=== PATIENT | female | born 1995 | race American Indian/Alaskan Native ===

== ENCOUNTER 2021-08-19 04:35 | Outpatient (CLI) | payer MEDICAID ==
[2021-08-19 07:48] VITALS: BP 91/54
== END 2021-08-19 08:33 | disposition home or self-care (01) ==
LOC: TRG 04:35 → APU 04:43 → TRG 08:33
PROVIDERS: ATTEND Obstetrics & Gynecology
DX: Z34.93 Encounter for supervision of normal pregnancy, unspecified, third trimester (principal); Z3A.39 39 weeks gestation of pregnancy
CPT/HCPCS: 59025

== ENCOUNTER 2021-08-19 12:09 | Inpatient (IN) | payer MEDICAID ==
[2021-08-19] MEDS ORDERED: LACTATED RINGERS 500 ML IV ONE (14:30)
[2021-08-19 14:31] LABS: Bilirubin,Urine NEG (Negative); Blood,Urine SM (Negative); Color,Urine Straw (Yellow); Protein,Urine <15 mg/dL mg/dL (Negative); Urobilinogen,Urine < 2.0 mg/dL (<2.0); WBC,Urine < 1.0 /HPF (0.0-6.0)
--- NOTE | 2021-08-19 14:31 | History and Physical Report ---
History of Present Illness Date of examination: 08/19/21 Date of admission: 08/19/2021 Chief complaint: contractions History of present illness: EDC Confirmation: 08/23/2021 Past History : 1 Term Births: 0 Premature Births: 0 Living Children: 0 Para: 0 Mult. Births: 0 Prev : 0 Aborta: 0 Elect. Ab: 0 Spont. Ab: 0 Ectopics: 0 Past Medical History: Reviewed history and no changes required: Negative Past Medical History Past Surgical History: Reviewed history and no changes required: negative Past Medical History Anesthesia Complications: negative Anemia: negative Autoimmune Disorder: negative Bleeding Disorder: negative Blood Transfusions: negative Breast Disease: negative Diabetes: negative Heart Disease: negative Hypertension: negative Hepatitis/Liver Disease: negative Kidney Disease/UTI: negative Neurologic/Epilepsy/Migraines: negative Phlebitis/Varicosities: negative Psychiatric: negative Pulmonary Disease/Asthma: negative Thyroid Disease: negative Hospitalizations: negative 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 of genital herpes: no Partner hx. of genital herpes: no Rash, Viral, or Febrile illness since last LMP? no Varicella/Chicken Pox Status: Unknown TB Risk: no Genetic History Congenital Heart Defect: Mom: no Dad: no Bella Disease: Mom: no Dad: no Thalassemia Mom: no Dad: no Neural Tube Defect Mom: no Dad: no Down's Syndrome Mom: no Dad: no Aguila-Sachs Mom: no Dad: no Sickle Cell Disease/Trait Mom: no Dad: no Hemophilia Mom: no Dad: no Muscular Dystrophy Mom: no Dad: no Cystic Fibrosis Mom: no Dad: no Raffaele Chorea Mom: no Dad: no Mental Retardation Mom: no Dad: no Fragile X Mom: no Dad: no Other Genetic/Chromosomal Disorder Mom: no Dad: no Child w/other defect Mom: no Dad: no Enviromental Exposures Xray Exposure: no Medication, drug, or alcohol use since LMP: no Chemical/Other Exposure: no Exposure to Cat Liter: no Hx of Parvovirus (Fifth Disease): no 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 Medications: None Current Allergies (reviewed today): No known allergies Past History Past Medical History: no pertinent history Past Surgical History: no surgical 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) Family/Genetic History: other (see HPI) Social history: other (see HPI) - Obstetrical History Expected Date of Delivery: 08/23/21 Actual Gestation: 39 Week(s) 3 Day(s) : 1 Para: 0 Hx # Term Pregnancies: 0 Number of Pregnancies: 0 Spontaneous Abortions: 0 Induced : 0 Number of Living Children: 0 Medications and Allergies Allergies Allergy/AdvReac Type Severity Reaction Status Date / Time No Known Allergies Allergy Unverified 08/19/21 05:05 Active Meds: Active Medications Lactated Ringer's (Lactated Ringers) 500 mls @ 999 mls/hr IV BOLUS ONE Stop: 08/19/21 15:00 Review of Systems All systems: negative Genitourinary: contractions, no vaginal bleeding, no leakage of fluid - Vital Signs Vital signs: Vital Signs Temp Resp 98.3 F 18 08/19/21 12:25 08/19/21 12:25 Temp Pulse Resp BP Pulse Ox 98.3 F 86 18 92/51 98 08/19/21 12:25 08/19/21 14:24 08/19/21 12:25 08/19/21 12:35 08/19/21 14:24 - Physical Exam Breasts: Positive: deferred Cardiovascular: Regular rate Lungs: Positive: Normal air movement Abdomen: Positive: normal appearance, soft. Negative: tenderness Genitourinary (Female): Positive: normal external genitalia, normal perenium Vulva: both: normal Vagina: Positive: normal moisture Uterus: Positive: normal size, normal contour, other (gravid). Negative: tender Anus/Rectum: Positive: normal perianal skin, heme negative Extremities: Positive: normal - Obstetrical FHR: category 2 FHR comments: FHR with minimal and moderate variability with accelerations Uterine Contraction Monitor Mode: Palpation Cervical Dilatation: 3 Cervical Effacement Percentage: 90 station: -2 Uterine Contraction Pattern: Regular Uterine Tone Measurement Phase: Resting Results All other labs normal. Tests: (1) Ct, Ng, Trich vag by ALFIE ([id number]) Order Note: Clinical Information: SRC:UR SRC:VR Chlamydia by ALFIE Negative Negative *1 Gonococcus by ALFIE Negative Negative *2 Trich vag by ALFIE Negative Negative *3 Tests: (2) Strep Gp B ALFIE+Rflx ([id number]) ! Strep Gp B ALFIE+Rflx [A] Positive Negative *4 Tests: (1) Profile I ([id number]) Order Note: Clinical Information: SRC:UR HBsAg Screen Negative Negative *1 RPR Non Reactive Non Reactive *2 Rubella Antibodies, IgG 3.46 index Immune >0.99 *3 Non-immune <0.90 Equivocal 0.90 - 0.99 Immune >0.99 ABO Grouping A *4 Rh Factor Positive *5 Please note: Prior records for this patient's ABO / Rh type are not available for additional verification. Antibody Screen Negative Negative *6 WBC 6.0 x10E3/uL 3.4-10.8 *7 RBC 4.43 x10E6/uL 3.77-5.28 *8 Hemoglobin 12.3 g/dL 11.1-15.9 *9 Hematocrit 38.4 % 34.0-46.6 *10 MCV 87 fL 79-97 *11 MCH 27.8 pg 26.6-33.0 *12 MCHC 32.0 g/dL 31.5-35.7 *13 RDW 12.8 % 11.7-15.4 *14 Platelets 322 x10E3/uL 150-450 *15 Neutrophils 64 % Not Estab. *16 Lymphs 29 % Not Estab. *17 Monocytes 6 % Not Estab. *18 Eos 1 % Not Estab. *19 Basos 0 % Not Estab. *20 ! Immature Cells <No Reported Value> *21 Neutrophils (Absolute) 3.8 x10E3/uL 1.4-7.0 *22 Lymphs (Absolute) 1.8 x10E3/uL 0.7-3.1 *23 Monocytes(Absolute) 0.4 x10E3/uL 0.1-0.9 *24 Eos (Absolute) 0.0 x10E3/uL 0.0-0.4 *25 Baso (Absolute) 0.0 x10E3/uL 0.0-0.2 *26 ! Immature Granulocytes 0 % Not Estab. *27 ! Immature Grans (Abs) 0.0 x10E3/uL 0.0-0.1 *28 ! NRBC <No Reported Value> *29 Hematology Comments: <No Reported Value> *30 Tests: (2) Parvovirus B19, Human, IgG/IgM ([id number]) ! Parvovirus B19, IgG 0.1 index 0.0-0.8 *31 Negative <0.9 Equivocal 0.9 - 1.1 Positive >1.1 ! Parvovirus B19, IgM 0.1 index 0.0-0.8 *32 Negative <0.9 Equivocal 0.9 - 1.1 Positive >1.1 Tests: (3) HB Solu + Rflx Fra ([id number]) Hemoglobin (Hgb) Solubility Negative Negative *33 Tests: (4) HIV Ag/Ab with Reflex ([id number]) HIV Screen 4th Generation wRfx Non Reactive Non Reactive *34 Tests: (5) Gest. Diabetes 1-Hr Screen ([id number]) ! Gestational Diabetes Screen 101 mg/dL 65-139 *35 According to ADA, a glucose threshold of >139 mg/dL after 50-gram load identifies approximately 80% of women with gestational diabetes mellitus, while the sensitivity is further increased to approximately 90% by a threshold of >129 mg/dL. Tests: (6) HCV Ab w/Rflx to Verification ([id number]) ! HCV Ab <0.1 s/co ratio 0.0-0.9 *36 Tests: (7) Comment: ([id number]) ! Comment: SPRCS *37 Non reactive HCV antibody screen is consistent with no HCV infection, unless recent infection is suspected or other evidence exists to indicate HCV infection. Tests: (8) Urine Culture, Routine ([id number]) Urine Culture, Routine Final report *38 Tests: (9) Result ([id number]) ! Result 1 "Result Below..." *39 RESULT: Lactobacillus species 50,000-100,000 colony forming units per mL Susceptibility not normally performed on this organism. Assessment and Plan POC d/w pt and SO. All questions and concerns addressed. Pt verbalizes understanding and agrees to POC. Orders placed in EMR - Patient Problems (1) 39 weeks gestation of Current Visit: Yes Status: Acute Plan to address problem: continuous efm and toco monitor closely and notify provider with any changes in status admit to labor, start IV, draw labs anticipate (2) Active labor at term Current Visit: Yes Status: Acute (3) Supervision of normal first in third trimester Current Visit: Yes Status: Acute (4) GBS carrier Current Visit: Yes Status: Acute Plan to address problem: Ampicillin q4h with active labor or ROM VS per protocol
[2021-08-19] MEDS ORDERED: ONDANSETRON 4 MG/2 ML INJ IV PRN (14:39)
[2021-08-19] MEDS ORDERED: NALOXONE 0.4 MG/1 ML INJ IV PRN (14:39)
[2021-08-19] MEDS ORDERED: CARBOPROST TROMETHAMINE 250 MCG/1 ML INJ IM PRN (14:39)
[2021-08-19] MEDS ORDERED: TERBUTALINE 1 MG/1 ML INJ SUB-Q PRN (14:39)
[2021-08-19] MEDS ORDERED: METHYLERGONOVINE MALEATE 0.2 MG/ML VIAL IM PRN (14:39)
[2021-08-19] MEDS ORDERED: miSOPROStol 200 MCG TAB PR PRN (14:39)
[2021-08-19] MEDS ORDERED: NalbUPHINE 10 MG/1 ML INJ IV PRN (14:39)
[2021-08-19] MEDS ORDERED: MINERAL OIL 30 ML ORAL LIQD PO PRN (14:39)
[2021-08-19] MEDS ORDERED: ePHEDrine SULFATE 50 MG/1 ML INJ IV PRN (14:39)
[2021-08-19] MEDS ORDERED: OXYTOCIN 10 UNIT/1 ML INJ IM PRN (14:39)
[2021-08-19] MEDS ORDERED: LIDOCAINE (2%) 20 MG/1 ML VIAL 20 ML MDV INFILTRATI ONE (14:39)
[2021-08-19] MEDS ORDERED: LOPERAMIDE 2 MG CAP PO PRN (14:39)
[2021-08-19] MEDS ORDERED: PROMETHAZINE 25 MG TAB PO PRN (14:39)
[2021-08-19] MEDS ORDERED: ACETAMINOPHEN 325 MG TAB PO PRN (14:39)
[2021-08-19] MEDS ORDERED: LACTATED RINGERS 1,000 ML IV SCH (14:45)
[2021-08-19] MEDS ORDERED: OXYTOCIN DRIP 30 UNITS/500 ML BAG IV SCH ×2 (15:00)
[2021-08-19] MEDS ORDERED: AMPICILLIN/NS 2 GM/100 ML 2 GM/100 ML BAG IV ONE (15:00)
[2021-08-19] MEDS ORDERED: AMPICILLIN 1 GM in SODIUM CHLORIDE 0.9% 50 ML IV SCH (15:00)
[2021-08-19 16:07] LABS: Hematocrit 35.2 % (30.3-42.9); Hemoglobin 11.8 gm/dl (10.1-14.3); Mean Corpuscular HGB Conc 34 % (30-34); Mean Corpuscular Volume 82 fl (79-97); Platelet Count 282 K/mm3 (140-440); Red Blood Count 4.31 M/mm3 (3.65-5.03); Red Cell Distribution Width 13.9 % (13.2-15.2)
[2021-08-19] MEDS: BUTORPHANOL 2 MG/1 ML INJ IV PRN ×2 (17:32→23:20)
[2021-08-19] MEDS: AMPICILLIN/NS 1 GM/50 ML 1 GM/50 ML BAG IV SCH (20:15)
--- NOTE | 2021-08-19 20:52 | Progress Note ---
Assessment and Plan CNM called to bedside. Pt reports desires for IV pain medication. FHT's strip reviewed. SVE 7-8/100/-1. Pt declines AROM augmentation at this time. POC d/w pt and SO. Questions encouraged and addressed. IV pain medicine not advised at this time d/t imminent delivery and potential for respiratory distress in . Pt verbalizes understanding and agrees to POC. Ellen ENRIQUEZ present for evaluation and verbalizes understanding and agreement to POC. - Patient Problems (1) 39 weeks gestation of Current Visit: Yes Status: Acute Plan to address problem: continuous efm and toco monitor closely and notify provider with any changes in status anticipate (2) Active labor at term Current Visit: Yes Status: Acute (3) Supervision of normal first in third trimester Current Visit: Yes Status: Acute (4) GBS carrier Current Visit: Yes Status: Acute Plan to address problem: Ampicillin q4h with active labor or ROM VS per protocol Subjective - Subjective Date of service: 08/19/21 Principal diagnosis: term active labor, GBS positive Interval history: EDC Confirmation: 08/23/2021 Past History : 1 Term Births: 0 Premature Births: 0 Living Children: 0 Para: 0 Mult. Births: 0 Prev : 0 Aborta: 0 Elect. Ab: 0 Spont. Ab: 0 Ectopics: 0 Past Medical History: Reviewed history and no changes required: Negative Past Medical History Past Surgical History: Reviewed history and no changes required: negative Past Medical History Anesthesia Complications: negative Anemia: negative Autoimmune Disorder: negative Bleeding Disorder: negative Blood Transfusions: negative Breast Disease: negative Diabetes: negative Heart Disease: negative Hypertension: negative Hepatitis/Liver Disease: negative Kidney Disease/UTI: negative Neurologic/Epilepsy/Migraines: negative Phlebitis/Varicosities: negative Psychiatric: negative Pulmonary Disease/Asthma: negative Thyroid Disease: negative Hospitalizations: negative 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 of genital herpes: no Partner hx. of genital herpes: no Rash, Viral, or Febrile illness since last LMP? no Varicella/Chicken Pox Status: Unknown TB Risk: no Genetic History Congenital Heart Defect: Mom: no Dad: no Bella Disease: Mom: no Dad: no Thalassemia Mom: no Dad: no Neural Tube Defect Mom: no Dad: no Down's Syndrome Mom: no Dad: no Aguila-Sachs Mom: no Dad: no Sickle Cell Disease/Trait Mom: no Dad: no Hemophilia Mom: no Dad: no Muscular Dystrophy Mom: no Dad: no Cystic Fibrosis Mom: no Dad: no [place] Chorea Mom: no Dad: no Mental Retardation Mom: no Dad: no Fragile X Mom: no Dad: no Other Genetic/Chromosomal Disorder Mom: no Dad: no Child w/other defect Mom: no Dad: no Enviromental Exposures Xray Exposure: no Medication, drug, or alcohol use since LMP: no Chemical/Other Exposure: no Exposure to Cat Liter: no Hx of Parvovirus (Fifth Disease): no 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: None Current Allergies (reviewed today): No known allergies Patient reports: movement normal, contractions, no loss of fluid, no vaginal bleeding Objective - Vital Signs Vital Signs: Vital Signs - 12hr 08/19/21 08/19/21 08/19/21 12:25 12:35 12:40 Temperature 98.3 F Pulse Rate 101 H 96 H Respiratory 18 Rate Blood Pressure 92/51 O2 Sat by Pulse 97 97 Oximetry O2 Sat by Pulse Oximetry [ Bilateral] 08/19/21 08/19/21 08/19/21 12:45 12:50 12:55 Temperature Pulse Rate 87 91 H 94 H Respiratory Rate Blood Pressure O2 Sat by Pulse 98 96 97 Oximetry O2 Sat by Pulse Oximetry [ Bilateral] 08/19/21 08/19/21 08/19/21 13:00 13:05 13:10 Temperature Pulse Rate 89 87 81 Respiratory Rate Blood Pressure O2 Sat by Pulse 98 97 97 Oximetry O2 Sat by Pulse Oximetry [ Bilateral] 08/19/21 08/19/21 08/19/21 13:15 13:24 13:29 Temperature Pulse Rate 77 96 H 88 Respiratory Rate Blood Pressure O2 Sat by Pulse 97 99 97 Oximetry O2 Sat by Pulse Oximetry [ Bilateral] 08/19/21 08/19/21 08/19/21 13:34 13:39 13:44 Temperature Pulse Rate 110 H 69 100 H Respiratory Rate Blood Pressure O2 Sat by Pulse 97 97 98 Oximetry O2 Sat by Pulse Oximetry [ Bilateral] 08/19/21 08/19/21 08/19/21 13:49 13:54 13:59 Temperature Pulse Rate 99 H 93 H 90 Respiratory Rate Blood Pressure O2 Sat by Pulse 98 98 97 Oximetry O2 Sat by Pulse Oximetry [ Bilateral] 08/19/21 08/19/21 08/19/21 14:04 14:09 14:14 Temperature Pulse Rate 99 H 94 H 75 Respiratory Rate Blood Pressure O2 Sat by Pulse 97 98 97 Oximetry O2 Sat by Pulse Oximetry [ Bilateral] 08/19/21 08/19/21 08/19/21 14:19 14:24 14:29 Temperature Pulse Rate 82 86 85 Respiratory Rate Blood Pressure O2 Sat by Pulse 98 98 99 Oximetry O2 Sat by Pulse Oximetry [ Bilateral] 08/19/21 08/19/21 08/19/21 14:34 14:39 14:44 Temperature Pulse Rate 88 92 H 95 H Respiratory Rate Blood Pressure O2 Sat by Pulse 98 98 98 Oximetry O2 Sat by Pulse Oximetry [ Bilateral] 08/19/21 08/19/21 08/19/21 14:49 14:54 15:32 Temperature Pulse Rate 78 86 99 H Respiratory Rate Blood Pressure O2 Sat by Pulse 97 97 0 L Oximetry O2 Sat by Pulse Oximetry [ Bilateral] 08/19/21 08/19/21 08/19/21 15:37 15:42 15:47 Temperature Pulse Rate 75 87 90 Respiratory Rate Blood Pressure O2 Sat by Pulse 98 99 98 Oximetry O2 Sat by Pulse Oximetry [ Bilateral] 08/19/21 08/19/21 08/19/21 15:52 15:57 15:58 Temperature Pulse Rate 71 96 H 95 H Respiratory Rate Blood Pressure O2 Sat by Pulse 95 99 94 Oximetry O2 Sat by Pulse Oximetry [ Bilateral] 08/19/21 08/19/21 08/19/21 16:02 16:07 16:12 Temperature Pulse Rate 86 81 91 H Respiratory Rate Blood Pressure O2 Sat by Pulse 98 99 98 Oximetry O2 Sat by Pulse Oximetry [ Bilateral] 08/19/21 08/19/21 08/19/21 16:14 16:17 17:34 Temperature Pulse Rate 94 H 90 86 Respiratory Rate Blood Pressure 107/72 O2 Sat by Pulse 98 100 Oximetry O2 Sat by Pulse 98 Oximetry [ Bilateral] 08/19/21 08/19/2108/19/21 17:39 17:44 17:49 Temperature Pulse Rate 79 81 75 Respiratory Rate Blood Pressure O2 Sat by Pulse 97 99 97 Oximetry O2 Sat by Pulse Oximetry [ Bilateral] 08/19/21 08/19/21 08/19/21 17:54 17:59 18:04 Temperature Pulse Rate 95 H 85 76 Respiratory Rate Blood Pressure O2 Sat by Pulse 97 98 98 Oximetry O2 Sat by Pulse Oximetry [ Bilateral] 08/19/21 08/19/21 08/19/21 18:09 18:14 18:19 Temperature Pulse Rate 81 84 83 Respiratory Rate Blood Pressure O2 Sat by Pulse 99 97 99 Oximetry O2 Sat by Pulse Oximetry [ Bilateral] 08/19/21 08/19/21 08/19/21 18:24 18:29 18:34 Temperature Pulse Rate 80 81 71 Respiratory Rate Blood Pressure O2 Sat by Pulse 98 97 98 Oximetry O2 Sat by Pulse Oximetry [ Bilateral] 08/19/21 08/19/21 08/19/21 18:39 18:44 18:49 Temperature Pulse Rate 87 80 97 H Respiratory Rate Blood Pressure O2 Sat by Pulse 98 97 95 Oximetry O2 Sat by Pulse Oximetry [ Bilateral] 08/19/21 08/19/21 08/19/21 18:54 18:59 19:04 Temperature Pulse Rate 68 78 97 H Respiratory Rate Blood Pressure O2 Sat by Pulse 98 98 95 Oximetry O2 Sat by Pulse Oximetry [ Bilateral] 08/19/21 08/19/21 08/19/21 19:09 19:14 19:19 Temperature Pulse Rate 63 101 H 79 Respiratory Rate Blood Pressure O2 Sat by Pulse 98 97 98 Oximetry O2 Sat by Pulse Oximetry [ Bilateral] 08/19/21 08/19/21 08/19/21 19:24 19:26 19:29 Temperature Pulse Rate 88 77 94 H Respiratory Rate Blood Pressure O2 Sat by Pulse 96 91 98 Oximetry O2 Sat by Pulse Oximetry [ Bilateral] 08/19/21 08/19/21 08/19/21 19:31 19:34 19:39 Temperature Pulse Rate 83 96 H 95 H Respiratory Rate Blood Pressure O2 Sat by Pulse 94 98 98 Oximetry O2 Sat by Pulse Oximetry [ Bilateral] 08/19/21 08/19/21 08/19/21 19:44 19:47 19:49 Temperature Pulse Rate 87 76 76 Respiratory Rate Blood Pressure O2 Sat by Pulse 96 94 93 Oximetry O2 Sat by Pulse Oximetry [ Bilateral] 08/19/21 08/19/21 08/19/21 19:54 19:56 19:59 Temperature Pulse Rate 82 72 73 Respiratory Rate Blood Pressure O2 Sat by Pulse 95 91 99 Oximetry O2 Sat by Pulse Oximetry [ Bilateral] 08/19/21 08/19/21 08/19/21 20:04 20:09 20:14 Temperature Pulse Rate 86 88 78 Respiratory Rate Blood Pressure O2 Sat by Pulse 99 97 99 Oximetry O2 Sat by Pulse Oximetry [ Bilateral] 08/19/21 08/19/21 08/19/21 20:19 20:24 20:27 Temperature Pulse Rate 78 93 H 74 Respiratory Rate Blood Pressure O2 Sat by Pulse 100 98 90 Oximetry O2 Sat by Pulse Oximetry [ Bilateral] 08/19/21 08/19/21 08/19/21 20:29 20:34 20:39 Temperature Pulse Rate 82 73 91 H Respiratory Rate Blood Pressure O2 Sat by Pulse 98 98 99 Oximetry O2 Sat by Pulse Oximetry [ Bilateral] 08/19/21 20:44 Temperature Pulse Rate 85 Respiratory Rate Blood Pressure O2 Sat by Pulse 99 Oximetry O2 Sat by Pulse Oximetry [ Bilateral] - Exam Breasts: deferred Cardiovascular: Regular rate Lungs: Normal air movement Abdomen: Present: normal appearance, soft. Absent: tenderness Vulva: both: normal Uterus: Present: normal, other (gravid) FHR: auscultation normal, category 1 (with periods of minimal variability and accelerations) Uterine Contraction Monitor Mode: External Cervical Dilatation: 7.5 Cervical Effacement Percentage: 100 station: -1 Uterine Contraction Pattern: Regular Uterine Tone Measurement Phase: Resting Extremities: normal - Labs Labs: Abnormal Labs 08/19/21 14:30 MCH 27 L Laboratory Results - last 24 hr 08/19/21 08/19/21 08/19/21 13:20 14:30 14:30 WBC 10.6 RBC 4.31 Hgb 11.8 Hct 35.2 MCV 82 MCH 27 L MCHC 34 RDW 13.9 Plt Count 282 Urine Color Straw Urine Turbidity Clear Urine pH 7.0 Ur Specific [place] 1.006 Urine Protein <15 mg/dl Urine Glucose (UA) Neg Urine Ketones Neg Urine Blood Sm Urine Nitrite Neg Urine Bilirubin Neg Urine Urobilinogen < 2.0 Ur Leukocyte Esterase Neg Urine WBC (Auto) < 1.0 Urine RBC (Auto) 1.0 U Epithel Cells (Auto) < 1.0 Syphilis IgG Antibody Nonreactive Blood Type Antibody Screen 08/19/21 14:30 WBC RBC Hgb Hct MCV MCH MCHC RDW Plt Count Urine Color Urine Turbidity Urine pH Ur Specific [place] Urine Protein Urine Glucose (UA) Urine Ketones Urine Blood Urine Nitrite Urine Bilirubin Urine Urobilinogen Ur Leukocyte Esterase Urine WBC (Auto) Urine RBC (Auto) U Epithel Cells (Auto) Syphilis IgG Antibody Blood Type A POSITIVE Antibody Screen Negative
[2021-08-20] MEDS: AMPICILLIN/NS 1 GM/50 ML 1 GM/50 ML BAG IV SCH (00:15)
[2021-08-20] MEDS ORDERED: LIDOCAINE (2%) 20 MG/1 ML VIAL 20 ML MDV INFILTRATI ONE (03:12)
--- NOTE | 2021-08-20 03:51 | Procedure Note ---
OB Delivery Note - Delivery Date of Delivery: 08/20/21 Director Social: PATRICIA ANNE Estimated blood loss: other (400mL) - Vaginal Delivery presentation: vertex Delivery position: OA Intrapartum events: none Delivery induction: none Delivery monitor: external FHT, external uterine Route of delivery: Delivery placenta: spontaneous Delivery cord: 3 umbilical vessels Episiotomy: none Delivery laceration: 2nd degree Delivery repair: vicryl Anesthesia: local Delivery comments: CHETAN present for delivery. Viable female born over intact perineum and placed on mother's abdomen, vigorous and crying spontaneously. 3 vessel umbilical cord clamped after cessation of pulsation and cut by FOB. Placenta delivered spontaneously and intact. Apgars 8,9. EBL 400mL. 2nd degree laceration repaired with local anesthetic. Pt tolerated well. Fundus firm @U with scant lochia. Mother and baby remain LDR stable. Counts correct x2 - A at 1 minute: 8 at 5 minutes: 9 Infant Gender: Female ("Magaly" [id number])
--- NOTE | 2021-08-20 07:29 | Progress Note ---
Assessment and Plan A: 26 y.o. s/p @ term, approximately 4 hour P: Continue with care. Anticipate discharge home on 08/21. Subjective - Subjective Date of service: 08/20/21 (doing well. ) Principal diagnosis: s/p @ term, approximately 4 hours PP Patient reports: appetite normal, voiding normally, pain well controlled [place]: doing well Objective - Vital Signs Latest vital signs: Vital Signs Temp Pulse Resp BP BP Pulse Ox Pulse Ox 08/20/21 06:30 98 08/20/21 05:20 83 100 08/20/21 05:15 71 99 08/20/21 05:11 70 115/58 08/20/21 05:10 75 99 08/20/21 05:08 98.4 F 71 14 116/55 100 08/20/21 05:05 69 99 08/20/21 05:00 75 100 08/20/21 04:56 71 116/55 08/20/21 04:55 78 99 08/20/21 04:50 66 100 08/20/21 04:46 82 90 08/20/21 04:45 71 16 120/58 99 08/20/21 04:41 71 120/58 08/20/21 04:40 72 99 08/20/21 04:35 70 98 08/20/21 04:34 77 93 08/20/21 04:30 98.4 F 74 14 122/58 100 08/20/21 04:27 74 122/58 08/20/21 04:25 76 100 08/20/21 04:20 80 99 08/20/21 04:15 77 98 08/20/21 04:10 82 99 08/20/21 04:05 76 99 08/20/21 04:00 86 14 121/63 121/63 100 08/20/21 03:54 80 98 08/20/21 03:49 90 99 08/20/21 03:44 88 99 08/20/21 03:39 88 99 08/20/21 03:34 80 100 08/20/21 03:30 98.3 F 88 16 126/65 126/65 100 08/20/21 03:29 74 100 08/20/21 03:24 68 100 08/20/21 03:19 75 100 08/20/21 03:14 73 100 08/20/21 03:09 86 100 08/20/21 03:04 82 100 08/20/21 03:00 134 H 174/104 92 08/20/21 02:59 88 99 08/20/21 02:54 82 99 08/20/21 02:49 113 H 100 08/20/21 02:44 103 H 98 08/20/21 02:39 44 L 95 08/20/21 02:34 80 100 08/20/21 02:31 75 121/74 08/20/21 02:30 77 134/101 08/20/21 02:29 76 99 08/20/21 02:28 78 89 08/20/21 02:24 70 99 08/20/21 02:21 59 L 89 08/20/21 02:19 90 100 08/20/21 02:14 85 96 08/20/21 02:13 114 H 87 08/20/21 02:09 82 98 08/20/21 02:04 103 H 97 08/20/21 01:59 98.3 F 74 14 115/67 115/67 97 08/20/21 01:56 102 H 88 08/20/21 01:54 72 99 08/20/21 01:49 87 99 08/20/21 01:47 96 H 82 L 08/20/21 01:44 74 100 08/20/21 01:40 99 H 86 08/20/21 01:39 81 99 08/20/21 01:34 95 H 95 08/20/21 01:29 110 H 97 08/20/21 01:26 103 H 94 08/20/21 01:24 84 99 08/20/21 01:19 99 H 99 08/20/21 01:17 104 H 94 08/20/21 01:14 76 99 08/20/21 01:11 102 H 90 08/20/21 01:09 82 98 08/20/21 01:04 97 H 99 08/20/21 00:59 95 H 100 08/20/21 00:54 89 97 08/20/21 00:49 84 99 08/20/21 00:44 99 H 100 08/20/21 00:42 109 H 91 08/20/21 00:39 108 H 98 08/20/21 00:34 88 100 08/20/21 00:31 106 H 92 10/19/21 00:29 79 99 1019/21 00:24 98 H 100 19/21 00:20 76 90 1019/21 00:19 94 H 99 19/21 00:14 74 100 19/21 00:09 102 H 98 19/21 00:04 83 100 18/21 23:59 100 H 100 18/21 23:54 75 100 18/21 23:49 70 100 18/21 23:44 69 100 18/21 23:39 80 100 18/21 23:34 105 H 99 18/21 23:29 97 H 98 18/21 23:24 75 98 18/21 23:20 14 18/21 23:19 74 98 18/21 23:14 80 99 18/21 23:09 89 99 18/21 23:04 80 98 18/21 22:59 82 97 1018/21 22:54 82 98 18/21 22:49 104 H 96 18/21 22:44 101 H 97 18/21 22:39 97 H 99 18/21 22:34 90 98 18/21 22:29 84 98 18/21 22:24 97 H 99 18/21 22:19 100 H 98 18/21 22:14 107 H 98 1018/21 22:09 107 H 96 1018/21 22:04 81 100 1018/21 21:59 94 H 98 1018/21 21:54 97 H 98 1018/21 21:49 81 99 1018/21 21:44 98 H 99 1018/21 21:39 102 H 98 1018/21 21:34 105 H 98 1018/21 21:29 83 97 1018/21 21:24 94 H 95 1018/21 21:19 80 98 1018/21 21:14 89 96 1018/21 21:09 83 99 1018/21 21:04 91 H 98 1018/21 20:59 80 99 1018/21 20:54 104 H 95 1018/21 20:49 96 H 98 1018/21 20:44 85 99 10/18/21 20:39 91 H 99 10/18/21 20:34 73 98 10/18/21 20:29 82 98 10/18/21 20:27 74 90 10/18/21 20:24 93 H 98 1018/21 20:19 78 100 10/18/21 20:14 78 99 10/18/21 20:09 88 97 1018/21 20:04 86 99 1018/21 19:59 73 99 1018/21 19:56 72 91 1018/21 19:54 82 95 10/18/21 19:49 76 93 10/18/21 19:47 76 94 1018/21 19:44 87 96 1018/21 19:39 95 H 98 1018/21 19:34 96 H 98 18/21 19:31 83 94 1018/21 19:29 94 H 98 18/21 19:26 77 91 1018/21 19:24 88 96 18/21 19:19 79 98 1018/21 19:14 101 H 97 18/21 19:09 63 98 1018/21 19:04 97 H 95 18/21 18:59 78 98 1018/21 18:54 68 98 1018/21 18:49 97 H 95 1018/21 18:44 80 97 1018/21 18:39 87 98 1018/21 18:34 71 98 1018/21 18:29 81 97 1018/21 18:24 80 98 1018/21 18:19 83 99 1018/21 18:14 84 97 1018/21 18:09 81 99 1018/21 18:04 76 98 1018/21 17:59 85 98 10/18/21 17:54 95 H 97 1018/21 17:49 75 97 10/18/21 17:44 81 99 10/18/21 17:39 79 97 10/18/21 17:34 86 100 1018/21 16:17 90 98 98 1018/21 16:14 94 H 107/72 1018/21 16:12 91 H 98 1018/21 16:07 81 99 10/18/21 16:02 86 98 10/18/21 15:58 95 H 94 1018/21 15:57 96 H 99 08/19/21 15:52 71 95 08/19/21 15:47 90 98 08/19/21 15:42 87 99 08/19/21 15:37 75 98 08/19/21 15:32 99 H 0 L 08/19/21 14:54 86 97 08/19/21 14:49 78 97 08/19/21 14:44 95 H 98 08/19/21 14:39 92 H 98 08/19/21 14:34 88 98 08/19/21 14:29 85 99 08/19/21 14:24 86 98 08/19/21 14:19 82 98 08/19/21 14:14 75 97 08/19/21 14:09 94 H 98 08/19/21 14:04 99 H 97 08/19/21 13:59 90 97 08/19/21 13:54 93 H 98 08/19/21 13:49 99 H 98 08/19/21 13:44 100 H 98 08/19/21 13:39 69 97 08/19/21 13:34 110 H 97 08/19/21 13:29 88 97 08/19/21 13:24 96 H 99 08/19/21 13:15 77 97 08/19/21 13:10 81 97 08/19/21 13:05 87 97 08/19/21 13:00 89 98 08/19/21 12:55 94 H 97 08/19/21 12:50 91 H 96 08/19/21 12:45 87 98 08/19/21 12:40 96 H 97 08/19/21 12:35 101 H 92/51 97 08/19/21 12:25 98.3 F 18 Intake and Output 08/19/21 08/20/21 08/20/21 22:59 06:59 14:59 Intake Total 50 Output Total 250 Balance 50 -250 Intake: IV 50 AMPICILLIN/NS 1 GM/50 ML 50 1 gm In 50 ml @ 200 mls/ hr IV Q4H [facility] Rx#: [id number] Output: Urine 250 Void 250 Other: Total, Output Amount 250 # Voids Void 3 Estimated Blood Loss 400 - Exam Breasts: Present: deferred Cardiovascular: Present: Regular rate Lungs: Present: Normal air movement Abdomen: Present: normal appearance, soft Uterus: Present: normal, firm Extremities: Present: normal - Labs Labs: Abnormal lab results 08/19/21 Range/Units 14:30 MCH 27 L (28-32) pg
[2021-08-20] MEDS ORDERED: LANOLIN/ZINC/DIMETHICONE (LANSINOH) 7 GM TP PRN (08:00)
[2021-08-20] MEDS ORDERED: WITCH HAZEL/ GLYCERIN PAD TP PRN (08:00)
[2021-08-20] MEDS ORDERED: oxyCODONE /ACETAMINOPHEN 5-325MG TAB PO PRN (08:00)
[2021-08-20] MEDS ORDERED: BENZOCAINE/MENTHOL 20/0.5% TOP SPRAY 56 GM TP PRN (08:00)
[2021-08-20] MEDS ORDERED: ACETAMINOPHEN 325 MG TAB PO PRN (08:00)
[2021-08-20] MEDS ORDERED: PROMETHAZINE 25 MG TAB PO PRN (08:00)
[2021-08-20] MEDS ORDERED: ONDANSETRON 4 MG/2 ML INJ IV PRN (08:00)
[2021-08-20] MEDS ORDERED: diphenhydrAMINE 25 MG CAP PO PRN (08:00)
[2021-08-20] MEDS ORDERED: HYDROCORTISONE 25 MG RECTAL SUPP PR PRN (10:00)
[2021-08-20] MEDS: IBUPROFEN 600 MG TAB PO SCH ×2 (10:12→22:26)
[2021-08-20] MEDS: SENNOSIDES/DOCUSATE SODIUM 8.6/50 MG TAB PO SCH (10:12)
[2021-08-20] MEDS: PRENATAL VIT27-FE FUMARATE-FOLIC ACID VIT TAB PO SCH (10:13)
[2021-08-20] MEDS: FERROUS SULFATE 325 MG TAB PO SCH ×2 (10:14→22:26)
[2021-08-20 13:09] LABS: Hematocrit 32.8 % (30.3-42.9); Hemoglobin 10.3 gm/dl (10.1-14.3)
[2021-08-20] MEDS: DOCUSATE SODIUM 100 MG CAP PO SCH ×2 (17:00→22:26)
[2021-08-20] MEDS ORDERED: MAGNESIUM HYDROXIDE (MOM) ORAL LIQD UDC PO PRN (22:00)
[2021-08-21] MEDS ORDERED: TETANUS,DIPH,PERTUSS(ACELL) VACCINE 0.5 ML SYRINGE IM ONE (04:07)
[2021-08-21] MEDS: IBUPROFEN 600 MG TAB PO SCH ×2 (04:17→08:46)
[2021-08-21] MEDS: SENNOSIDES/DOCUSATE SODIUM 8.6/50 MG TAB PO SCH ×2 (05:11→10:37)
--- NOTE | 2021-08-21 09:17 | Discharge Summary ---
Providers - Providers Date of Admission: 08/19/21 15:30 Date of discharge: 08/21/21 Attending physician: BILLIE ALBERTO 08/20/21 07:09 Consult to Permit Coordinator [CONS] Routine Reason For Exam: assistance with , SNS Primary care physician: KARYN BRYANT Hospitalization Reason for admission: active labor, IUP at term Delivery: Episiotomy: none Laceration: 2nd degree Other procedures: none complications: none Discharge diagnosis: IUP at term delivered baby: female Condition at discharge: Good Disposition: 01 HOME / SELF CARE / HOMELESS - Discharge Diagnoses (1) 39 weeks gestation of Status: Acute (2) Active labor at term Status: Acute (3) Supervision of normal first in third trimester Status: Acute (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 Plan - Discharge Medications Prescriptions: Ibuprofen [Motrin] 800 mg PO Q8HR PRN #30 tablet PRN Reason: Pain, Moderate (4-6) - Provider Discharge Summary Activity: routine, no sex for 6 weeks, no heavy lifting 4 weeks, no strenuous exercise Diet: routine Instructions: routine Additional instructions: [] Smoking cessation referral if applicable(refer to patient education folder for contact #) [] Refer to [facility]'s [facility] Booklet Call your doctor immediately for: * Fever > 100.5 * Heavy vaginal bleeding ( >1 pad per hour) * Severe persistent headache * Shortness of breath * Reddened, hot, painful area to leg or breast * Drainage or odor from incision. * Keep incision clean and dry at all times and follow doctor's instructions regarding bathing/showering Congratulations! Please call [phone] and schedule your 4 week appointment. Thank you! - Follow up plan Follow up: KARYN BRYANT MD [Primary Care Provider] - 7 Days
[2021-08-21] MEDS: DOCUSATE SODIUM 100 MG CAP PO SCH (10:03)
[2021-08-21] MEDS: PRENATAL VIT27-FE FUMARATE-FOLIC ACID VIT TAB PO SCH (10:03)
[2021-08-21] MEDS: FERROUS SULFATE 325 MG TAB PO SCH (10:03)
[2021-08-21 13:30] VITALS: BP 96/61
== END 2021-08-21 13:40 | disposition home or self-care (01) | DRG 775 ==
LOC: TRG 12:09 → APU 12:09 → TRG 14:39 → LD 15:30 → OB 08-20 06:35
PROVIDERS: ADMIT Obstetrics & Gynecology; ATTEND Obstetrics & Gynecology
PROC: 10E0XZZ Delivery of Products of Conception, External Approach (ICD-10-PCS; principal; 2021-08-20)
PROC: 0KQM0ZZ Repair Perineum Muscle, Open Approach (ICD-10-PCS; 2021-08-20)
PROC: 3E0234Z Introduction of Serum, Toxoid and Vaccine into Muscle, Percutaneous Approach (ICD-10-PCS; 2021-08-21)
DX: O99.824 Streptococcus B carrier state complicating childbirth (principal); Z37.0 Single live birth; O70.1 Second degree perineal laceration during delivery; Z3A.39 39 weeks gestation of pregnancy; Z23 Encounter for immunization; Z20.822 Contact with and (suspected) exposure to COVID-19
CPT/HCPCS: 36415; 59025; 81001; 85014; 85018; 85027; 86592; 86850; 86900; 86901; 88307; 96360; 99211; G0378; G0463; J0290; J0595; J2590; J7120; U0003